=== PATIENT | male | born 1960 | race Caucasian/White ===

== ENCOUNTER 2021-08-23 10:34 | Emergency (ER) | payer SELFPAY ==
[2021-08-23 11:04] VITALS: BP 173/91; PULSE 88; TEMP 99.2; BMI 25.0
[2021-08-23] MEDS ORDERED: AMPICILLIN NA/SULBACTAM NA 3 GM in SODIUM CHLORIDE 100 ML IVPB ONE (13:36)
[2021-08-23] MEDS ORDERED: AMPICILLIN NA/SULBACTAM NA 3 GM VIAL ONE (13:39)
== END 2021-08-23 15:10 | disposition home or self-care (01) ==
LOC: FER 10:34
DX: S61.215A Laceration without foreign body of left ring finger without damage to nail, initial encounter (principal); W23.0XXA Caught, crushed, jammed, or pinched between moving objects, initial encounter
CPT/HCPCS: 73130-TC-LT-FY; 99284-25